=== PATIENT | female | born 1960 | race African-American/Black ===

== ENCOUNTER 2020-07-15 15:56 | Emergency (ER) | payer MEDICAID ==
[~2020-07-15] VITALS: Ht 160 cm; Wt 96.0 kg
[2020-07-15] MEDS ORDERED: HYDRALAZINE 20MG/ML VIAL IV ONE (16:30)
[2020-07-15 18:14] LABS: BASOPHILS % 1.2 % (0.0-2.0); HEMATOCRIT. 35.7 % (36.0-48.0); HEMOGLOBIN. 11.5 g/dL (12.0-16.0); LYMPHOCYTES % 36.9 % (20.0-50.0); MEAN CORPUSCULAR HEMOGLOBIN 24.5 pg (28.0-32.0); MEAN CORPUSCULAR VOLUME 75.8 fL (81.0-99.0); MEAN PLATELET VOLUME 8.8 fl (7.4-10.4); MONOCYTES % 6.5 % (2.0-8.0); NEUTROPHILS % 51.4 % (40.0-76.0); PLATELET 314 x1000/uL (130-400); RED BLOOD CELL COUNT 4.71 mill/uL (4.2-5.4); RED CELL DISTRIBUTION WIDTH 16.2 % (11.6-14.6)
[2020-07-15 18:15] LABS: CHLORIDE 106 mEq/L (98-107)
[2020-07-15] MEDS ORDERED: HYDRALAZINE HCL 25MG TABLET PO ONE (21:15)
[2020-07-15 22:00] VITALS: BP 128/77
[2020-07-15] MEDS ORDERED: HYDR-4134 MT (22:44)
== END 2020-07-15 23:19 | disposition home or self-care (01) ==
LOC: ER 15:56
DX: I10 Essential (primary) hypertension (principal)
CPT/HCPCS: 36415; 71045; 80053; 82962; 83880; 84484; 85025; 93005; 96374; 99285; J0360